=== PATIENT | male | born 1945 | race Native Hawaiian/Other Pacific Islander ===

== ENCOUNTER 2020-02-11 16:18 | Outpatient (CLI) | payer OTHER | END 2020-02-11 22:38 | disposition home or self-care (01) | LOC: RAD 16:18 | DX: M25.552 Pain in left hip (principal) ==

== ENCOUNTER 2020-03-10 13:17 | Outpatient (CLI) | payer OTHER | END 2020-03-10 22:42 | disposition home or self-care (01) | LOC: RAD 13:17 | PROVIDERS: ATTEND Orthopaedic Surgery | DX: M25.552 Pain in left hip (principal) ==

== ENCOUNTER 2020-04-28 13:38 | Outpatient (CLI) | payer OTHER | END 2020-04-28 22:13 | disposition home or self-care (01) | LOC: RAD 13:38 | PROVIDERS: ATTEND Orthopaedic Surgery | DX: Z96.642 Presence of left artificial hip joint (principal) ==

== ENCOUNTER 2020-07-13 13:00 | Outpatient (CLI) | payer OTHER | END 2020-07-13 20:52 | disposition home or self-care (01) | LOC: RAD 13:00 | PROVIDERS: ATTEND Physician Assistant | DX: M25.551 Pain in right hip (principal) ==

== ENCOUNTER 2020-10-06 13:20 | Outpatient (CLI) | payer OTHER | END 2020-10-06 19:25 | disposition home or self-care (01) | LOC: RAD 13:20 | PROVIDERS: ATTEND Orthopaedic Surgery | DX: M25.551 Pain in right hip (principal) ==

== ENCOUNTER 2021-07-05 13:29 | Outpatient (CLI) | payer OTHER | END 2021-07-05 20:12 | disposition home or self-care (01) | LOC: RAD 13:29 | PROVIDERS: ATTEND Physician Assistant | DX: M25.551 Pain in right hip (principal) ==